=== PATIENT | male | born 1980 | race African-American/Black ===

== ENCOUNTER 2016-09-03 13:09 | Emergency (ER) | payer OTHER ==
[2016-09-03 13:46] VITALS: BP 134/98
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
== END 2016-09-03 19:50 | disposition home or self-care (01) ==
LOC: ED 13:09
DX: S16.1XXA Strain of muscle, fascia and tendon at neck level, initial encounter (principal); M25.511 Pain in right shoulder; V49.59XA Passenger injured in collision with other motor vehicles in traffic accident, initial encounter; Y93.9 Activity, unspecified; Y92.9 Unspecified place or not applicable; Y99.9 Unspecified external cause status
CPT/HCPCS: 72125